=== PATIENT | female | born 1985 | race Caucasian/White ===

== ENCOUNTER 2017-10-02 14:18 | Emergency (ER) | payer BC, OTHER ==
[2017-10-02 14:19] VITALS: BMI 38.7
[2017-10-02] MEDS ORDERED: Sodium Chloride 0.9% 1,000 ML IV STA (15:10)
[2017-10-02] MEDS ORDERED: DiphenhydrAMINE 50 mg/ml Inj IVP STA (15:11)
--- NOTE | 2017-10-02 15:33 | ED PDOC ---
Arrival/HPI - General Chief Complaint: Shortness Of Breath Time Seen by Provider: 10/02/17 14:26 Historian: Patient - History of Present Illness Narrative History of Present Illness (Text): 10/02/17 15:33 A 32 year old female, , dates by [place] dating of 5 months, whose past medical history includes asthma " mildly persistent, no prior intubation NICU, unknown bpf", recent asthma exacerbation treatment by PMD on Q 6 to 8 hour nebulizers and 20 mg prednisone q daily day (part of larger taper from 3 days of 40 mg prednisone) , on day 6 total , and anxiety (on Lexapro), presents to the emergency department complaining of continued shortness of breath and chest tightness for the past 7 days. Exercise tolerance to 4 blocks. Recent orthopnea , sleeping on 4 pillows. Denies any chest pain, sign of pretibial swelling, history of DVT. Patient endorsed improvement of original symptoms of nasal congestion, after taking Sudafed. Patient denies any other complaints at this time. 10/02/17 18:44 Time/Duration: 1 week Symptom Onset: Sudden Symptom Course: Unchanged Activities at Onset: Rest Context: Home Past Medical History - Provider Review Nursing Documentation Reviewed: Yes - Infectious Disease Hx of Infectious Diseases: None - Tetanus Immunization Tetanus Immunization: Unknown - Pulmonary Hx Asthma: Yes - Psychiatric Hx Depression: Yes Hx Emotional Abuse: No Hx Physical Abuse: No Hx Substance Use: No - Past Surgical History Past Surgical History: No Previous - Surgical History Hx Tonsillectomy: Yes - Anesthesia Hx Anesthesia: Yes Hx Anesthesia Reactions: No Hx Malignant Hyperthermia: No - Suicidal Assessment Feels Threatened In Home Enviroment: No Family/Social History - Physician Review Nursing Documentation Reviewed: Yes Family/Social History: No Known Family HX Smoking Status: Never Smoked Hx Alcohol Use: No Hx Substance Use: No Hx Substance Use Treatment: No Allergies/Home Meds Allergies/Adverse Reactions: Allergies No Known Allergies Allergy (Verified 03/29/15 12:51) Home Medications: Home Meds Medication Instructions Recorded Confirmed Escitalopram [Lexapro] 10 mg PO DAILY 11/11/13 10/02/17 Acetaminophen [Acetaminophen Extra 500 mg PO PRN PRN 10/02/17 10/02/17 Strength] Albuterol Sulfate [Proair Hfa] 200 puff IH PRN PRN 10/02/17 10/02/17 DiphenhydrAMINE [Benadryl] 50 mg PO DAILY 10/02/17 10/02/17 Fluticasone/Vilanterol [Breo 1 each IH DAILY 10/02/17 10/02/17 Ellipta 100-25 Mcg INH] Multivit/Folic Acid/I 1 tab PO DAILY 10/02/17 10/02/17 [ Plus] Pseudoephedrine HCl [Sudafed] 30 mg PO DAILY PRN 10/02/17 10/02/17 predniSONE [predniSONE Tab] 20 mg PO DAILY 10/02/17 10/02/17 Review of Systems - Physician Review All systems were reviewed & negative as marked: Yes - Review of Systems Constitutional: Normal Eyes: Normal ENT: Normal Respiratory: SOB Cardiovascular: Orthopnea, Other (chest tightness). absent: Chest Pain Gastrointestinal: Normal Genitourinary Female: Normal Musculoskeletal: Normal Skin: Normal Neurological: Normal Endocrine: Normal Hemo/Lymphatic: Normal Psychiatric: Normal Physical Exam Vital Signs Reviewed: Yes Vital Signs Temp Pulse Resp BP Pulse Ox 10/02/17 16:19 98.4 F 98 H 20 121/67 97 10/02/17 14:37 98.2 F 110 H 16 122/62 99 Temperature: Afebrile Blood Pressure: Normal Pulse: Tachycardic Respiratory Rate: Normal Appearance: Positive for: Well-Appearing, Non-Toxic, Comfortable Pain Distress: None Mental Status: Positive for: Alert and Oriented X 3 - Systems Exam Head: Present: Atraumatic, Normocephalic Pupils: Present: PERRL Extroacular Muscles: Present: EOMI Conjunctiva: Present: Normal Mouth: Present: Moist Mucous Membranes Neck: Present: Normal Range of Motion Respiratory/Chest: Present: Other (decreased i/e ratio). No: Respiratory Distress, Accessory Muscle Use Cardiovascular: Present: Regular Rate and Rhythm, Normal S1, S2. No: Murmurs Abdomen: Present: Normal Bowel Sounds, Other (5 month gravid size uterus). No: Tenderness, Distention, Peritoneal Signs Back: Present: Normal Inspection Upper Extremity: Present: Normal Inspection. No: Cyanosis, Edema Lower Extremity: Present: Normal Inspection, Other (no pretibial edema). No: Edema Neurological: Present: GCS=15, CN II-XII Intact, Speech Normal Skin: Present: Warm, Dry, Normal Color. No: Rashes Psychiatric: Present: Alert, Oriented x 3, Normal Concentration, Anxious Medical Decision Making ED Course and Treatment: 10/02/17 15:30 Impression: A 32 year old female with shortness of breath and chest tightness. Plan: -- EKG -- labs -- Urinalysis -- IV fluids, Benadryl, Solumedrol -- Reassess and disposition Prior Visits: Notes and results from previous visits were reviewed. Patient last reported to the emergency department on 03/29/15 for evaluation of lightheadedness s/p slip and fall. Progress Notes: 10/02/17 18:45 s/p ivf/iv benadryl/ iv steroids/ nebulizer treatments , pt feels better , ambulating around ED without hypoxia /tachycardia nor tachypnea. will f/u with her pmd and highway engineer/gyn this coming week as already alrranged. - Lab Interpretations Lab Results: 10/02/17 15:20 10/02/17 15:20 Lab Results 10/02/17 16:30: Urine Color Light yellow, Urine Appearance Sl cloudy, Urine pH 6.5, Ur Specific Stanley 1.010, Urine Protein Negative, Urine Glucose (UA) Negative, Urine Ketones Negative, Urine Blood Negative, Urine Nitrate Negative, Urine Bilirubin Negative, Urine Urobilinogen 0.2, Ur Leukocyte Esterase Negative 10/02/17 15:20: Sodium 138, Chloride 107, Potassium 3.6, Carbon Dioxide 23, Anion Gap 12, BUN 8, Creatinine 0.6 L, Est GFR ( Amer) > 60, Est GFR (Non -Af Amer) > 60, Random Glucose 97, Calcium 9.0, Total Bilirubin 0.5, AST 19, ALT 27, Alkaline Phosphatase 47, Total Protein 7.1, Albumin 3.9, Globulin 3.2, Albumin/Globulin Ratio 1.2 10/02/17 15:20: pO2 45, VBG pH 7.35, VBG pCO2 44.0, VBG HCO3 24.3, VBG Total CO2 25.7, VBG O2 Sat (Calc) 81.4 H, VBG Base Excess -1.5 L, VBG Potassium 3.6, Sodium 139.0, Chloride 107.0, Glucose 97, Lactate 1.3, FiO2 21.0, Venous Blood Potassium 3.6 10/02/17 15:20: WBC 9.4, RBC 4.09, Hgb 11.8 L, Hct 35.3 L, MCV 86.3, MCH 28.9, MCHC 33.4, RDW 12.2, Plt Count 209, MPV 10.3, Gran % 63.8, Lymph % (Auto) 28.0, Lynn % (Auto) 6.8 H, Eos % (Auto) 1.2 L, Baso % (Auto) 0.2, Gran # 6.00, Lymph # 2.6, Lynn # 0.6, Eos # 0.1, Baso # 0.02 10/02/17 15:20: PT 11.9, INR 1.09 H, APTT 26.5 I have reviewed the lab results: Yes - EKG Interpretation Interpreted by ED Physician: Yes Type: 12 lead EKG - Medication Orders Current Medication Orders: Discontinued Medications Albuterol/Ipratropium (Duoneb 3 Mg/0.5 Mg (3 Ml) Ud) 3 ml IH Q15M CECILIA Stop: 10/02/17 17:16 Last Admin: 10/02/17 17:22 Dose: 3 ml Diphenhydramine HCl (Benadryl) 25 mg IVP STAT STA Stop: 10/02/17 15:12 Last Admin: 10/02/17 15:42 Dose: 25 mg IVP Administration Document 10/02/17 15:42 LA (Rec: 10/02/17 15:42 LA [id number]) Charges for Administration # of IVP Administrations 1 Sodium Chloride (Sodium Chloride 0.9%) 1,000 mls @ 999 mls/hr IV .Q1H1M STA Stop: 10/02/17 16:10 Last Admin: 10/02/17 15:43 Dose: 999 mls/hr eMAR Start Stop Document 10/02/17 15:43 LA (Rec: 10/02/17 15:43 LA [id number]) Intravenous Solution Start Date 10/02/17 Start Time 15:43 Methylprednisolone (Solu-Medrol) 100 mg IVP STAT STA Stop: 10/02/17 15:08 Last Admin: 10/02/17 16:32 Dose: 100 mg IVP Administration Document 10/02/17 16:32 LA (Rec: 12/03/17 16:32 LA [id number]) Charges for Administration # of IVP Administrations 1 - Scribe Statement The provider has reviewed the documentation as recorded by the Aibgailibmark Barrientos All medical record entries made by the Abigailibe were at my direction and personally dictated by me. I have reviewed the chart and agree that the record accurately reflects my personal performance of the history, physical exam, medical decision making, and the department course for this patient. I have also personally directed, reviewed, and agree with the discharge instructions and disposition. Disposition/Present on Arrival - Present on Arrival Any Indicators Present on Arrival: No History of DVT/PE: No History of Uncontrolled Diabetes: No Urinary Catheter: No History of Decub. Ulcer: No History Surgical Site Infection Following: None - Disposition Have Diagnosis and Disposition been Completed?: Yes Diagnosis: Asthma attack Disposition: HOME/ ROUTINE Disposition Time: 18:47 Patient Plan: Discharge Condition: GOOD Discharge Instructions (ExitCare): Asthma (DC), Anxiety (ED) Print Language: NIGERIEN Additional Instructions: Drink plenty of water , avoid diary products, and all your usual triggers. Follow up with your regular pmd and highway engineer/gyn. Continue with your 20 mg steroid taper x 2-3 days then stop. Us ethe inhaler every 2-4 hours as needed. Prescriptions: Albuterol 0.083% [Albuterol Sulfate 3 Ml] 0.5 ml IH Q6 PRN 5 Days #1 neb PRN Reason: Shortness Of Breath Albuterol HFA [Ventolin HFA 90 mcg/actuation (8 g)] 0.09 mg IH Q6 PRN #1 inhaler PRN Reason: Wheezing Prednisone [Deltasone] 20 mg PO DAILY #3 tablet Referrals: Florecita Bermudez, [Primary Care Provider] - Follow up with primary Forms: Polar (Kyrgyz)
[2017-10-02 15:56] LABS: BASO # 0.02 K/mm3 (0.0-2.0); BASO % 0.2 % (0.0-3.0); EOS # 0.1 (0.0-0.7); EOS % 1.2 % (1.5-5.0); GRAN % 63.8 % (50.0-68.0); HEMATOCRIT 35.3 % (36.0-48.0); LYMPH # 2.6 (1.2-3.4); MEAN CELL VOLUME 86.3 fl (80.0-105.0); MEAN CORPUSCULAR HEMOGLOBIN 28.9 pg (25.0-35.0); MEAN CORPUSCULAR HGB CONC 33.4 g/dl (31.0-37.0); MEAN PLATELET VOLUME 10.3 fl (7.0-11.0); MONO # 0.6 (0.1-0.6); MONO % 6.8 % (1.0-6.0); RED CELL DISTRIBUTION WIDTH 12.2 % (11.5-14.5); WHITE BLOOD COUNT 9.4 10^3/ul (4.5-11.0)
[2017-10-02 16:02] LABS: ALB/GLOB RATIO 1.2 (1.1-1.8); ALKALINE PHOSPHATASE 47 U/L (38-126); ALT/SGPT 27 U/L (7-56); AST/SGOT 19 U/L (14-36); BILIRUBIN,TOTAL 0.5 mg/dL (0.2-1.3); BLOOD UREA NITROGEN 8 mg/dL (7-21); CARBON DIOXIDE 23 mmol/L (21-33); CHLORIDE 107 mmol/L (98-107); GFR AFRICAN-AMERICAN > 60; GLUCOSE,RANDOM 97 mg/dL (70-110); POTASSIUM 3.6 mmol/L (3.6-5.0); SODIUM 138 mmol/L (132-148); TOTAL PROTEIN 7.1 g/dL (5.8-8.3)
[2017-10-02 16:03] LABS: INR 1.09 (0.93-1.08); PARTIAL THROMBOPLASTIN TIME 26.5 Seconds (25.1-36.5)
[2017-10-02 16:24] LABS: VENOUS BLOOD GAS BASE EXCESS -1.5 mmol/L (0.0-2.0); VENOUS BLOOD PH 7.35 (7.32-7.43)
[2017-10-02 16:54] VITALS: RESP 20
[2017-10-02 16:57] LABS: PH,URINE 6.5 (4.7-8.0); URINE APPEARANCE SL CLOUDY (CLEAR); URINE BILIRUBIN NEGATIVE (NEGATIVE); URINE BLOOD NEGATIVE (NEGATIVE); URINE COLOR LIGHT YELLOW (YELLOW); URINE GLUCOSE (UA) NEGATIVE (NEGATIVE); URINE KETONE NEGATIVE (NEGATIVE); URINE LEUKOCYTE ESTERASE NEGATIVE Leu/uL (NEGATIVE); URINE PROTEIN NEGATIVE mg/dL (<30 mg/dL); URINE UROBILINOGEN 0.2 E.U./dL (<1 E.U./dL)
[2017-10-02] MEDS: Albuterol-Ipratrop 3 mg / 0.5 (3 ml) UD IH SCH ×3 (16:58→17:22)
[2017-10-02 19:11] VITALS: TEMP 98; O2SAT 98
[2017-10-02 20:01] VITALS: BP 125/65; PULSE 95
--- NOTE | 2017-10-03 17:49 | CARD ---
APPROVED REPORT EKG Measurement Heart [id number] <Conclusion> Sinus tachycardia Possible Left atrial enlargement Borderline ECG
== END 2017-10-02 19:45 | disposition home or self-care (01) ==
LOC: ED 14:18
DX: J45.909 Unspecified asthma, uncomplicated (principal)
CPT/HCPCS: 80053; 81003; 82803; 85025; 85610; 85730; 87040; 87086; 87181; 93005; 96374; 96375; 99285; J1200; J2930; J7040